=== PATIENT | female | born 1960 | race Caucasian/White ===

== ENCOUNTER 2017-05-03 12:12 | Observation (INO) | payer OTHER ==
[~2017-05-03] VITALS: Ht 177.8 cm; Wt 100.3 kg
[2017-05-03] VITALS (8 sets, daily range): BP systolic 143–161; BP diastolic 68–92; PULSE 59–79; RESP 15–18; O2SAT 97–99
[~2017-05-03 12:12] MED LIST: CITA20TA PO; OMPR20CCR PO
--- NOTE | 2017-05-03 12:17 | ED.REPORT ---
HPI-Stroke / CVA May 03, 2017 ED Provider: The patient is a 56 year old female who was brought to the emergency department by her son for stroke like symptoms. About 30 minutes prior to arrival the patient suddenly felt nauseous and was unable to speak. She knew what she wanted to say but was unable to get her mouth to move to speak. She was able to speak after a few minutes. The patient was with her friend when her symptoms began and she called her son to take her to the hospital. When he got to her she was speaking in short, 1-2 word sentences. Her words were intelligible but she normally speaks in longer sentences. She also noticed left-sided facial/ tongue numbness and a headache. Her son last saw the patient at 1100 AM today and she was normal then. The patient believes her symptoms began at 1145. She denies focal weakness, extremity numbness, slurred speech or trouble walking. Nursing Notes Stated Complaint: STATES POSSIBLE STROKE Chief Complaint: Neuro Symptoms/ Deficits Nursing Notes Reviewed: Yes Allergies: Coded Allergies: Opioids - Morphine Analogues (Verified Adverse Reaction, Intermediate, INTOLERANCE, 05/03/17) Scheduled Citalopram-Expunged Drug, Do Not Renew! (Citalopram-Expunged Drug, Do Not Renew! ) 20 Mg Tablet 20 MG PO DAILY (Reported) Omeprazole-Expunged Drug, Do Not Renew! (Omeprazole-Expunged Drug, Do Not Renew! ) 20 Mg Capsule.dr 20 MG PO DAILY (Reported) General Time Seen by Provider: 12:17 Chief Complaint Numbness, Unable to speak Face left Hx Obtained From: Patient, Son Arrived By: Walk-in Time last known well She believes her symptoms began at 1145. Seen by her son at 1100 and was completely normal. Sudden in Onset?: Yes Symptom Duration: 16 - 30 minutes Progression Since Onset: Constant Location: : Head Quality: Painful Severity: Current: Moderate Severity: Maximum: Moderate Associated with: Reports: Headache, Nausea, Speech problem (speaking in short sentences) Pertinent Negative: Pt denies other symptoms Pertinent Negative: Exacerbated by nothing, Relieved by nothing Recent Healthcare: No recent doctor visit, No recent hospitalization Similar Sx Previous: No Risk Factors NIH Stroke Scale Level of Consciousness: Alert and responsive (0) Ask Month & Age: Both questions right (0) Open/Close Eyes/Hand Court Assistant: Performs both tasks (0) Horizontal EO Movements: None (0) Visual Kay: No visual loss (0) Facial Palsy: Normal symmetry (0) Right Arm Motor Drift (10s): No drift 10 sec (0) Left Arm Motor Drift (10s): No drift 10 sec (0) Right Leg Motor Drift (5s): No drift 5 sec (0) Left Leg Motor Drift (5s): No drift 5 sec (0) Limb Ataxia FNF/Heel-Huber: No ataxia (0) Sensation (Arms/Legs/Face): Pinprick less sharp (1) (left upper extremity) Language Aphasia: No aphasia, normal (0) Dysarthria: No dysarthria, normal (0) Extinction/Inattention: No exctinct/inattent (0) NIHSS Score: 1 Time NIHSS Performed: 12:27 Date NIHSS Performed: May 03, 2017 Past Medical History Past Medical History Notes: Digital Media Manager: Dr. Handy Past Medical History Hypertension Basal cell carcinoma Past Surgical History Shoulder surgery Family History Noncontributory Smoking History Never Smoker Social History She lives with her mother who she takes care of. Other Social History: Good social support, Local resident Ambulatory Status Independent Review of Systems Review of Systems Note: +speaking in short sentences GI: Reports: Nausea Neurologic: Reports: Headache, Numbness (left face and tongue), Unable to speak , Denies: Focal weakness, Problem walking, Slurred speech, Weakness Complete sys rev & neg: except as marked. Physical Exam Initial Vital Signs Vital Signs (First) Date Time Temp Pulse Resp B/P Pulse Ox O2 Delivery O2 Flow Rate FiO2 05/03/17 12:14 36.8 68 15 160/92 97 Room Air Initial VS: Reviewed ENT: Mucous membranes moist, Conjunctiva normal, No scleral icterus Abdomen / GI: Soft, Non-tender, No guarding, No rebound, No distention Extremities: Vascular intact, Neuro intact, No swelling, No tenderness Skin: Warm, Dry, No cyanosis Psychiatric: Mood/affect normal, Behavior normal, Normal thought content General/Constitutional: Awake, Alert Head / Eyes: Atraumatic, Normocephalic, PERRL, EOMI Neck: Supple, Full range of motion, No swelling, Non-tender, No carotid bruit Respiratory / Chest: Atraumatic, Breath sounds NL, Breath sounds = bilat, No respiratory distress, No rales, No rhonchi, No wheezing Cardiovascular: Heart rate NL, Regular rhythm, Heart sounds NL, No gallop, No murmurs, No rubs, Peripheral circulation NL Neurologic: Oriented X3, Speech NL, No motor deficits, CN II - XII intact, Reflexes equal bilat, Cerebellar NL, Memory NL, Gait NL Sensory Deficit: Positive: Upper extremity L Cerebellar Dysfunction: Negative: Finger-nose abnl, Heel-huber abnl NIH stroke score: 1 due to decreased sensation on the left upper extremity. (see above in the risk section for details) Interpretation & Diagnostics Lab Results Interpretation Result Diagram: 05/03/17 1300 05/03/17 1300 Test 05/03/17 13:00 05/03/17 13:31 White Blood Count 6.3th/mm3 (3.8-10.1) Red Blood Count 4.64mil/mm3 (3.90-5.20) Hemoglobin 14.0g/dL (12.0-15.6) Hematocrit 42.1% (35.0-46.0) Mean Corpuscular Volume 90.7fL (81-100) Mean Corpuscular Hemoglobin 30.2pg (27.0-35.0) Mean Corpuscular Hemoglobin Concent 33.3% (32.0-37.0) Red Cell Distribution Width 12.8% (12.3-15.4) Platelet Count 252bil/L (150-400) Neutrophils (%) (Auto) 57.2% (40-74) Lymphocytes (%) (Auto) 30.2% (14-46) Monocytes (%) (Auto) 7.6% (4-12) Eosinophils (%) (Auto) 3.5% (0-5) Basophils (%) (Auto) 1.3% (0-3) Prothrombin Time 9.4sec (8.1-12.5) Prothromb Time International Ratio 0.88ratio Sodium Level 140mEq/L (134-144) Potassium Level 4.5mEq/L (3.5-5.2) Chloride Level 104mEq/L (97-108) Carbon Dioxide Level 21mmol/L (18-29) Blood Urea Nitrogen 12mg/dL (6-24) Creatinine 0.81mg/dL (0.57-1.00) Estimat Glomerular Filtration Rate 104mL/min (>59) Glucose Level 99mg/dL (60-99) Calcium Level 9.3mg/dL (8.5-10.1) Total Bilirubin 0.4mg/dL (0.0-1.2) Aspartate Amino Transf (AST/SGOT) 18U/L (0-50) Alanine Aminotransferase (ALT/SGPT) 18U/L (0-32) Alkaline Phosphatase 105U/L (25-150) Troponin T < 0.010ug/L (0.0-0.011) Total Protein 7.1g/dL (6.4-8.4) Albumin 4.0g/dL (3.4-5.0) ECG Interpretation ECG Interpretation: Normal sinus rhythm with a rate of 65 Time: 13:20 Interpreted by: ED physician Rhythm Strip Interpretation : Rhythm Strip Interpretation: NSR Rate: 70 Time: 12:39 Rhythm Strip Interpretation: Interpreted by me CT Head Interpretation IMPRESSION: Normal head CT. This study fulfills neurological imaging criteria for inclusion or exclusion of acute stroke therapies based on available published neurological imaging guidelines. Dictated by: Anjana Koo M.D. on 05/03/2017 at 12:27 Study: Head CT no contrast Interpretation / Wet Read by: Interpret - Radiologist Re-Eval/Medical Decision Med Decision/Clinical Course I am not entirely convinced that this woman's symptoms are consistent with stroke however I believe conservative management is appropriate given the fact that she has a history of expressive aphasia and left-sided mouth numbness and objective left upper extremity decreased sensation to pinprick. Source of Hx: Old records, Family Re-Evaluation/Progress : Time of Eval: 13:00 Re-Evaluation/Progress Note: Discussed plan for admission. All questions were addressed. Consultation : Referral / Consult Name: Prashant Pham Consulted With: Hospitalist Call Returned at: 13:18 Market Relationship Manager: Will see patient, Agrees with eval, Agrees with plan, Accepts admit Counseled Regarding: Diagnosis, Lab results, Need for admission Patient Discharge & Departure Impression: Primary Impression: Stroke CVA mechanism: unspecified Qualified Code: I63.9 - Cerebral infarction, unspecified Disposition: ADMITTED TO HOSPITAL Discharge Condition All VS Reviewed: Yes Condition: Stable Referrals: Windy Herrera PA-C (PCP) Scribe Attestation Portions of this note were transcribed by Flakita Eaton. I, Dr. Smith personally performed the history, physical exam and medical decision-making; I reviewed and confirmed the accuracy of the information in the transcribed note. Signed by: Ramos Patricia, 05/03/2017 at 1400. copies to: Windy Herrera PA-C, Kirk H MD May 03, 2017 12:17 Flakita Eaton May 03, 2017 12:24
--- NOTE | 2017-05-03 12:31 | DRSVH ---
PROCEDURE: CT BRAIN (TPA) ([id number]) INDICATIONS: Stroke TECHNIQUE: Noncontrast 4.5 mm thick angled axial sections acquired from the foramen magnum to the vertex, with c oronal reformats. COMPARISON: None. FINDINGS: Image quality: Excellent. CSF spaces: Basal cisterns are patent. No extra-axial fluid collections. Ventricles are normal in size and shape. Brain: No midline shift. No intracranial masses or hemorrhage. Villafana-white matter interface is norm al. Skull and face: Calvarium and visualized facial bones are intact, without suspicious lesions. Sinuses: Visualized sinuses and mastoids are clear. IMPRESSION: Normal head CT. This study fulfills neurological imaging criteria for inclusion or exclusion of acute stroke therapie s based on available published neurological imaging guidelines. Dictated by: Anjana Koo M.D. on 05/03/2017 at 12:27 Approved by: Anjana Koo M.D. on 05/03/2017 at 12:29
[2017-05-03 13:05] LABS: BASOPHILS % (AUTO) 1.3 % (0-3); EOSINOPHILS % (AUTO) 3.5 % (0-5); MONOCYTES % (AUTO) 7.6 % (4-12); Mean Corpuscular Hemoglobin 30.2 pg (27.0-35.0); Mean Corpuscular Volume 90.7 fL (81-100); NEUTROPHILS % (AUTO) 57.2 % (40-74); Platelet Count 252 bil/L (150-400)
[2017-05-03] MEDS ORDERED: Ondansetron 2 mg/mL 2 mL Inj IVPUSH PRN ×2 (13:25→16:30)
[2017-05-03] MEDS ORDERED: Alum-Mag Hydrox-Simeth 30 mL Suspension PO PRN ×2 (13:25→16:30)
[2017-05-03 13:32] LABS: INR 0.88 ratio
--- NOTE | 2017-05-03 13:32 | NUR ---
Evaluation completed. Please go to "Notes" then click on "Assessments and Notes" (bottom left corner of screen). Then select appropriate discipline tab on top of screen.
[2017-05-03 13:40] LABS: TROPONIN T < 0.010 ug/L (0.0-0.011)
[2017-05-03 14:11] LABS: APPEARANCE,URINE CLEAR (CLEAR,HAZY); COLOR,URINE YELLOW (YELLOW); OCCULT BLOOD,URINE NEGATIVE (NEGATIVE); PH,URINE 5.5 (5.0-8.0); UROBILINOGEN,URINE NORMAL (NORMAL)
[2017-05-03] MEDS ORDERED: SUCR1TAB (14:54)
[2017-05-03] MEDS ORDERED: PANT40TA3 PO (14:57)
[2017-05-03] MEDS ORDERED: LOSA100T29 PO (14:57)
[2017-05-03] MEDS ORDERED: RANI150C4 PO (14:57)
[2017-05-03] MEDS ORDERED: FEXO-106 PO (14:57)
[2017-05-03] MEDS ORDERED: CITA20TA11 PO (14:59)
--- NOTE | 2017-05-03 15:03 | NUR ---
Admit to [facility] Patient report called by Yanira Mendiola RN in ED. Patient arrived to [facility] via gurney and was able to transfer independently to bed. Patient has steady gait observed. Patient has equal strengths to all extremities. Patient states she has very minimal tingling to the left side of her jaw,cheek, and near eye. Patient oriented to room, call light, staff, visiting hours, television, and ordering meals. Patient did have complaints of 7/10 headache pain and was administered 975mg Tylenol. Bed locked and call light within reach.
[2017-05-03] MEDS ORDERED: Labetalol 5 mg/mL 4 mL Inj IVPUSH PRN (16:30)
[2017-05-03] MEDS ORDERED: Polyethylene Glycol (PEG) 17 Gm Powder PO PRN (16:30)
[2017-05-03] MEDS: Heparin 5,000 Unit/mL Inj SUBQ SCH (17:05)
--- NOTE | 2017-05-03 17:54 | PCM.HPMED ---
Subjective Date of Service May 03, 2017 Primary Provider: Admitting Physician: Prashant Pham Primary Care Physician: Windy Herrera PA-C Attending Physician: Prashant Pham Chief Complaint: transient left facial numbness and difficulty with speech History of Present Illness: 56 year old female generally healthy other than history of hypertension, obesity , and depression was in her usual state of health as she was driving with her boyfriend when suddenly felt she was having a hard time speaking. She says she could think of the words but was having a hard time uttering them. She kept thinking "I need to answer my boyfriends but the words weren't coming out". She was able to tell her boyfriend that she wasn't feeling well. She then started feeling numbness and tingling of the left side of her face. She finally told her boyfriend to bring her to the ED. By the time she arrived to the ED (which was about 30 minutes from the onset of her symptoms) her speech difficulty had completely resolved and the numbness and tingling of her face was also resolving and by the time she arrived to the floor her symptoms have completely resolved (about 2-3 hours after onset). She reports associated mild frontal headache but otherwise denies any other associated signs or symptoms. She denies any change in her medications recently and denies any prior such events. Review of Systems: Constitutional: Negative, except as otherwise mentioned in the history above. Ophthalmologic: Negative, except as otherwise mentioned in the history above. Cardiovascular: Negative, except as otherwise mentioned in the history above. Respiratory: Negative, except as otherwise mentioned in the history above. Gastrointestinal: Negative, except as otherwise mentioned in the history above. Genitourinary: Negative, except as otherwise mentioned in the history above. Musculoskeletal: Negative, except as otherwise mentioned in the history above. Neurological: Negative, except as otherwise mentioned in the history above. Psychiatric: Negative, except as otherwise mentioned in the history above. Hematologic/Lymphatic: Negative, except as otherwise mentioned in the history above. Allergic/Immunologic: Negative, except as otherwise mentioned in the history above. Allergies Coded Allergies: Opioids - Morphine Analogues (Verified Adverse Reaction, Intermediate, INTOLERANCE, 05/03/17) Home Medications Fexofenadine 180 Mg Tablet 180 Mg PO DAILY Losartan Potassium 100 Mg Tablet 100 Mg PO Citalopram 20 Mg Tablet 20 Mg PO DAILY Ref [address] 40 Mg Tablet.Dr 40 Mg PO BID Ref 0 Ranitidine 150 Mg Capsule 150 Mg PO BID Ref 0 Sucralfate 1 Gm Tablet Exam Vital Signs & I/O Vital Sign- Last 8 Hours Date Time Temp Pulse Resp B/P Pulse Ox O2 Delivery O2 Flow Rate FiO2 05/03/17 14:42 69 05/03/17 14:21 36.8 74 18 161/82 99 Room Air 05/03/17 14:12 36.4 79 17 144/71 97 Room Air 05/03/17 13:45 36.4 79 17 144/71 97 Room Air 05/03/17 12:43 148/68 05/03/17 12:36 74 18 98 Room Air 05/03/17 12:14 36.8 68 15 160/92 97 Room Air Lab & Micro Results Laboratory Tests Test 05/03/17 13:00 05/03/17 13:31 White Blood Count 6.3th/mm3 (3.8-10.1) Red Blood Count 4.64mil/mm3 (3.90-5.20) Hemoglobin 14.0g/dL (12.0-15.6) Hematocrit 42.1% (35.0-46.0) Mean Corpuscular Volume 90.7fL (81-100) Mean Corpuscular Hemoglobin 30.2pg (27.0-35.0) Mean Corpuscular Hemoglobin Concent 33.3% (32.0-37.0) Red Cell Distribution Width 12.8% (12.3-15.4) Platelet Count 252bil/L (150-400) Neutrophils (%) (Auto) 57.2% (40-74) Lymphocytes (%) (Auto) 30.2% (14-46) Monocytes (%) (Auto) 7.6% (4-12) Eosinophils (%) (Auto) 3.5% (0-5) Basophils (%) (Auto) 1.3% (0-3) Prothrombin Time 9.4sec (8.1-12.5) Prothromb Time International Ratio 0.88ratio Sodium Level 140mEq/L (134-144) Potassium Level 4.5mEq/L (3.5-5.2) Chloride Level 104mEq/L (97-108) Carbon Dioxide Level 21mmol/L (18-29) Blood Urea Nitrogen 12mg/dL (6-24) Creatinine 0.81mg/dL (0.57-1.00) Estimat Glomerular Filtration Rate 104mL/min (>59) Glucose Level 99mg/dL (60-99) Calcium Level 9.3mg/dL (8.5-10.1) Total Bilirubin 0.4mg/dL (0.0-1.2) Aspartate Amino Transf (AST/SGOT) 18U/L (0-50) Alanine Aminotransferase (ALT/SGPT) 18U/L (0-32) Alkaline Phosphatase 105U/L (25-150) Troponin T < 0.010ug/L (0.0-0.011) Total Protein 7.1g/dL (6.4-8.4) Albumin 4.0g/dL (3.4-5.0) Hold [place] Top Tube Received (Received) Urine Color Yellow (YELLOW) Urine Appearance Clear (CLEAR,HAZY) Urine pH 5.5 (5.0-8.0) Urine Specific [place] 1.005 (1.003-1.035) Urine Protein Negativemg/dL (NEG,TRACE) Urine Glucose (UA) Negativemg/dL (NEGATIVE) Urine Ketones Negativemg/dL (NEGATIVE) Urine Occult Blood Negative (NEGATIVE) Urine Nitrite Negative (NEGATIVE) Urine Bilirubin Negative (NEGATIVE) Urine Urobilinogen Normalmg/dL (NORMAL) Urine Leukocyte Esterase Negative (NEGATIVE) Urine RBC 0-2/hpf (0-2) Urine WBC 0-5/hpf (0-5) Urine Epithelial Cells Few/hpf (NONE-MOD) Urine Crystals None seen (NONE SEEN) Urine Bacteria Few/hpf (NONE-FEW) Urine Hyaline Casts None/lpf (NONE) Urine Granular Casts None seen (NONE SEEN) Urine Waxy Casts None seen (NONE SEEN) Urine Red Blood Cell Casts None seen (NONE SEEN) Urine White Blood Cell Casts None seen (NONE SEEN) Urine Mucus None seen (None Seen) Urine Trichomonas None seen (NONE SEEN) Urine Yeast None (NONE SEEN) Urinalysis Comment None Urine Culture Reflexed Not indicated Result Diagram: 05/03/17 1300 05/03/17 1300 PMH 1. Hypertension 2. GERD 3. Depression 4. Obesity 5. Reports a prior history of irregular heart rhythm but says was told that she does not need to be on any medication. She is not sure about the name of the condition. Family History Denies any family history of heart disease. Notable for mother and sister with diabetes Social History Hx Alcohol Use: No Hx Substance Use: No Hx Tobacco Use: No Smoking Status: Never Smoker Exam Vital Signs Vital Sign - Last Date Time Temp Pulse Resp B/P Pulse Ox O2 Delivery O2 Flow Rate FiO2 05/03/17 14:42 69 05/03/17 14:21 36.8 18 161/82 99 Room Air General: Alert, Oriented X3, Cooperative, No Acute Distress Head: Normal Eyes: PERRLA, EOMI, Scleral Anicteric Nose: Mucous Membr Moist/[place] Mouth: Mucous Membr Moist/[place] Neck: Supple Chest & Lungs: Chest Wall Normal, Clear to auscultation & percussion Cardiovascular: Regular Rate/Rhythm Pulses: NL carotid, radial, femoral, DP, PT Abdomen: Non-tender, Non-distended, Normoactive bowel tones, Soft Extremities: No cyanosis/clubbing/edma bilat Skin: Other (no ulcer/rash) Neurological: Grossly Neurologically Intact, Cranial Nerves 2-12 Intact, Normal Speech, Strength Normal 4/4 ext, Sensation Intact Additional Information: Affect: calm, appropriate Lab and Diagnostics Result Diagram: 05/03/17 1300 05/03/17 1300 X-Rays, CTs and MRIs Date of Service: 05/03/17 1217 PROCEDURE: CT BRAIN (TPA) ([id number]) IMPRESSION: Normal head CT. This study fulfills neurological imaging criteria for inclusion or exclusion of acute stroke therapies based on available published neurological imaging guidelines. Dictated by: Anjana Koo M.D. on 05/03/2017 at 12:27 Approved by: Anjana Koo M.D. on 05/03/2017 at 12:29 12-lead ECG NSR at about 65 bmp. no old EKG for comparison Assessment & Plan 56 year old female generally healthy other than history of hypertension, obesity presenting with transient episode of difficulty with her speech and left facial numbness. # Acute and transient neurologic symptoms possibly due to acute transient ischemic attack (TIA), present on admission. Resolved - Tele - MRI brain - Echo - Carotid U/S - ASA + Statin - Fasting lipid panel - Permissive HTN - PT/OT/Speech eval # History of hypertension - Permissive hypertension for now as noted above - Prn IV Labetalol # History of depression. Stable - Continue home Celexa # Reported history of irregular heart rhythm. - EKG on admission was normal sinus - Followup on Tele # GERD. Stable - Continue with PPI Expected length of hospital stay is less than 2 midnights and likely home tomorrow GI Prophylaxis: Proton Pump Inhibitor VTE Prophylaxis: Sub-Q Heparin (Unfractionated) Resuscitation Status: CPR: Attempt Resuscitation (discussed and verified with patient) Time spent 60 min Prashant Pham May 03, 2017 17:54
--- NOTE | 2017-05-03 19:30 | DRSVH ---
PROCEDURE: MRI STROKE PROTOCOL ([id number]) Pre- and post-contrast brain MRI, non-contrast brain MR angiogram, pre- and postcontrast neck MR [place] ogram INDICATIONS: Left facial numbness TECHNIQUE: Brain: Noncontrast axial T1 spin echo, axial T2 fast spin echo, sagittal and axial FLAIR, coronal T2 fast spin echo, axial gradient echo, axial diffusion and ADC through the brain. After the administr ation of contrast, axial 3D VIBE of the cranial vasculature and brain. Brain MRA: Non-contrast 3-D time of flight MR angiogram, with multiple pgsykim-jiqdjkwgn-xosouxxesj (MIP) reformats performed. Neck MRA: Axial and sagittal TruFISP through the neck. Coronal dynamic MR angiogram during administ ration of contrast in the arterial and venous phases, with 3-dimenstional lrkqayl-nuovzzaum-igttgrpee n (MIP) reformats constructed from subtraction images. COMPARISON: None. FINDINGS: Image quality: Excellent. BRAIN: CSF spaces: Ventricles are normal in size and shape. Basal cisterns are patent. No extra-axial flu id collections. Brain: No intracranial bleeds or mass effects. Mildly prominent right periventricular parietal lobe white matter signal change. However no associated enhancement Villafana-white matter interface is normal. Diffusion weighted images show no acute ischemic insults. Br ainstem appears normal. Normal intravascular flow voids are present. No abnormal intracranial enhan cement. Skull and face: Calvarial marrow signal is normal. Orbits appear normal. Sinuses: Sinuses and mastoids are clear. BRAIN MR ANGIOGRAM: Anterior circulation: Intracranial internal carotid arteries are normal in size and enhancement. 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 The flow within the corbin red anterior cerebral arteries is normal and symmetric. The flow within the middle cerebral arteries is normal and symmetric. The anterior communicating artery is seen. No stenoses, occlusions, or an eurysms. Posterior circulation: The visualized portions of the vertebral arteries demonstrate normal caliber, and join to form a normal appearing basilar artery. origin of the left posterior cerebral chary ry. The flow within the posterior cerebral arteries is normal and symmetric. No stenoses, occlusion s, or aneurysms. NECK MR ANGIOGRAM: Carotids: Great vessels demonstrate a conventional anatomy as they arise from the aortic arch. The origins of the common carotid arteries appear patent. The calibers and courses of both common caroti d arteries are normal. The bifurcation regions appear normal bilaterally. The internal carotid chary melania demonstrate normal course and caliber. Posterior circulation: The origins of the vertebral arteries appear patent. More superior portions of both vertebral arteries demonstrate normal course and caliber, and join to form a normal appearing basilar artery. Miscellaneous: Subclavian arteries appear patent. Pre-contrast images through the neck show no soft tissue abnormalities. IMPRESSION: BRAIN MRI: No evidence of acute ischemia. Nonspecific right parietal lobe periventricular white matter signal change raising the possibility of early demyelinating lesion, however no associated abnormal enhancement. 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 Otherwise, no focal stenosis or occlusion NECK MR ANGIOGRAM: Negative exam The estimate of stenosis included in the report of the imaging study was calculated using the NASCET method Dictated by: Daron Bazan M.D. on 05/03/2017 at 19:18 Approved by: Daron Bazan M.D. on 05/03/2017 at 19:28
[2017-05-03] MEDS ORDERED: SUCR1TAB PO (19:37)
--- NOTE | 2017-05-03 19:56 | DRSVH ---
PROCEDURE: US BILATERAL DUPLEX DOPPLER IMAGING OF THE CAROTIDS ([id number]) INDICATIONS: R/O Carotid Disease if no MRA or CTA Neck TECHNIQUE: Color and pulse Doppler interrogation was performed of both carotid systems, with image documentation and velocity measurements. COMPARISON: None. FINDINGS: All stenosis calculations are based on NASCET criteria. Right side: Brachial blood pressure: 161/82 mm Hg. Common Carotid Artery(Distal) PSV: 84.70 cm/s Internal Carotid Artery PSV- Proximal: 70.10 cm/s Mid-lon.50 cm/s Distal: 96.50 cm/s EDV - Proximal: 26.90 cm/s Mid-lon.70 cm/s Distal: 34.20 cm/s External Carotid Artery(Proximal) PSV: 83.60 cm/s ICA/CCA PSV ratio: 1.14 Villafana scale imaging description: No plaque Percent internal carotid artery stenosis: None. Vertebral artery: Flow direction is antegrade. Left side: Brachial blood pressure: Not obtained secondary to IV site Common Carotid Artery(Distal) PSV: 83 cm/s Internal Carotid Artery PSV - Proximal: 64.50 cm/s Mid-lon.90 cm/s Distal: 92.50 cm/s EDV - Proximal: 24.10 cm/s Mid-lon cm/s Distal: 33.70 cm/s External Carotid Artery(Proximal) PSV: 81.30 cm/s ICA/CCA PSV ratio: 1.11 Villafana scale imaging description: No plaque Percent internal carotid artery stenosis: None. Vertebral artery: Flow direction is antegrade. IMPRESSION: No ICA stenosis. Dictated by: Daron Bazan M.D. on 05/03/2017 at 19:53 Approved by: Daron Bazan M.D. on 05/03/2017 at 19:54
[2017-05-03] MEDS: Pantoprazole 40 mg ER24 Tablet PO SCH (22:10)
[2017-05-04 00:46] VITALS: BP 135/75; PULSE 69; RESP 18; O2SAT 97
[2017-05-04] MEDS: Heparin 5,000 Unit/mL Inj SUBQ SCH ×2 (00:46→08:19)
[2017-05-04 05:37] VITALS: BP 123/77; PULSE 64; RESP 16; O2SAT 97
[2017-05-04 06:11] LABS: Magnesium 2.2 mg/dL (1.6-2.6)
--- NOTE | 2017-05-04 06:15 | NUR ---
neuros Pt reported left side of face "still feeling unusual" in the beginning of shift. Denies numbness or tingling. Symptom is completely resolved around midnight. Denies pain or discomfort. independent in the room; gait steady. VSS.
[2017-05-04] MEDS: Pantoprazole 40 mg ER24 Tablet PO SCH (08:18)
[2017-05-04 09:43] VITALS: BP 147/81; PULSE 58; RESP 18; O2SAT 96
[2017-05-04 10:15] VITALS: PULSE 54
--- NOTE | 2017-05-04 11:38 | NUR ---
Social Work-screening: Data:EMR Reviewed. Pt is a 56 y/o female who was admitted on 05/03/17 for CVA per H&P. Pt's insurance is [employer] and PCP is HARVINDER Edouard. EMR Reviewed. Pt's readmission score is 2. SW met with pt to discuss discharge planning, SW role explained. Pt is alert and oriented x3. Pt reside at home with her mom in [place] where she remains independent with ADLS. Pt has no completed DPOA/ advanced directive paperwork and pt is not interested in any information at this time. PT and ST are both pending. SW provided pt with discharge planning checklist booklet and encouraged pt to call with any questions. SW provided phone number and plan on white board in room. Pt's son to provide transport home. No anticipated discharge needs. SW will continue to follow if needs arise. Assessment:Pt who is independent at baseline. Plan:Pt to discharge home when medically stable via POV.No anticipated discharge needs. SW will continue to follow if needs arise. LILLIAN Jones
--- NOTE | 2017-05-04 11:45 | NUR ---
Ambulation Pt ambulated to hallway, stable, steady gait observed. Pt is independent in the room to bathroom. No neuro deficits noted. Encouraged to contact staff for needs. Call light in place, will continue to monitor,.
[2017-05-04 13:32] VITALS: BP 150/81; PULSE 64; RESP 20; O2SAT 96
--- NOTE | 2017-05-04 15:15 | DRSVH ---
[facility] [address] [place] [address] Echocardiogram Report Name: MELY AGRAWAL KStudy Date: 05/04/2017 Height: 70 in Hospital Exam Location: [facility] Weight: 221 lb Gender: Female BSA: 2.2 m2 : 1960 Age: 56 yrs BP: 123/77 mmHg Reason For Study: CVA Ordering Physician: EMERY GONZALEZ Performed By: Denton Jalloh Referring Physician: CORTEZ Herrera Interpretation Summary Left ventricular size is at the upper limits of normal and left ventricular systolic function is normal without focal wall motion abnormalities with the ejection fraction visually estimated to be 55-60%. Assessment of diastolic parameters indicates normal left ventricular diastolic function and normal filling pressures. The right ventricle is normal size and right ventricular systolic function is at the lower limits of normal. The right ventricular systolic pressure is estimated at 23 mmHg assuming a right atrial pressure of 3 mm Hg. Both atria are normal in size and the interatrial septum appears intact with no evidence for an atrial septal defect by Doppler or injection of contrast. There is no significant valvular heart disease. The aortic arch and ascending aorta are at the upper limits of normal in size. Procedure: A two-dimensional transthoracic echocardiogram with color flow and Doppler was performed. The study quality was technically adequate. There is no prior echocardiogram noted for this patient. A saline contrast injection was performed to assess for cardiac shunting. The patient was in normal sinus rhythm during the exam. Left Ventricle: Left ventricular size is at the upper limits of normal. There is normal left ventricular wall thickness. Left ventricular systolic function is normal without focal wall motion abnormalities. The ejection fraction is estimated to be 55-60%. Assessment of diastolic parameters indicates normal left ventricular diastolic function and normal filling pressures. Right Ventricle: The right ventricle is normal size. Right ventricular systolic function is at the lower limits of normal. Atria: Both atria are normal in size. The interatrial septum is intact with no evidence for an atrial septal defect. There is no Doppler evidence for an interatrial shunt. Injection of contrast documented no interatrial shunt. Mitral Valve: The mitral valve leaflets appear mildly thickened, but open well. There is trace mitral regurgitation. Aortic Valve: The aortic valve is trileaflet. The aortic valve is slightly calcified. The aortic valve opens well. No aortic regurgitation is present. Tricuspid Valve: The tricuspid valve is normal in structure and function. There is trace tricuspid regurgitation. The right ventricular systolic pressure is estimated at 23 mmHg assuming a right atrial pressure of 3 mm Hg. Pulmonic Valve: The pulmonic valve is not well visualized. There is no significant valvular heart disease. Great Vessels: The aortic root is normal size. The aortic arch is at the upper limits of normal in size. The ascending aorta is at the upper limits of normal in size. The pulmonary artery is normal size. The IVC is of normal diameter and collapses greater than 50% with a sniff. This suggests a low right atrial pressure of 3 mm Hg. Pericardium/ Pleura There is no pericardial effusion. There is no pleural effusion. MMode/2D Measurements & Calculations LVIDd: 5.5 cm LA dimension: 3.3 cm RA long axis Ao root diam LVIDs: 3.3 cm FS: 39.5 % LA A2 area: 18.4 cm RA area Aortic Jxn: 2.8 cm EPSS: 0.65 cm LA A4 area: 26.5 cm asc Aorta Diam IVSd: 0.86 cm LA length (vol) : 17.6 cm LVPWd: 1.0 cm RA vol Ao Arch Diam (Prox LA vol: 64.3 ml : 53.4 ml Trans): 3.1 cm LA vol index RA : 24.5 mm2 IVC diam: 1.7 cm LV wells. diameter/BSA LV sys. diameter/BSA (cm/m^2): 2.5 (cm/m^2): 1.5 Doppler Measurements & Calculations Ao V2 max MV E max ector MV E/A: 1.3 TR max ector : 138.7 cm/sec : 86.1 cm/sec Med Peak E' Ector : 224.8 cm/sec Ao max PG MV A max ector TR max P.2 mmHg : 7.7 mmHg : 67.6 cm/sec E/E' med: 9.5 PA V2 max: 71.7 cm/sec Ao mean PG Pulm A Revs Dur PA mean P.3 mmHg : 4.6 mmHg PA Accel Time: 0.14 sec MV A dur: 0.12 sec MV dec time Ao V2 mean PA V2 mean Pulm A Revs Dur - MV A : 0.20 sec : 102.2 cm/sec : 55.6 cm/sec Dur: -0.02 msec Ao V2 VTI PA pr(Accel) : 33.1 cm : 13.9 mmHg Reading Physician:03:15 PM
[2017-05-04] MEDS ORDERED: ATOR10TA66 PO (15:44)
[2017-05-04] MEDS ORDERED: ASPI-973 PO (15:44)
--- NOTE | 2017-05-04 15:47 | PCM.DIMED ---
Discharge Instructions Date of Service May 04, 2017 Dates of Hospitalization May 03, 2017 at 13:32 Discharge Diagnosis Discharge Diagnosis # Acute and transient neurologic symptoms possibly due to acute transient ischemic attack (TIA), present on admission. Resolved # MRI brain showing: "Nonspecific right parietal lobe periventricular white matter signal change raising the possibility of early demyelinating lesion, however no associated abnormal enhancement." - Recommend further followup with primary care provider to ensure stability. # History of hypertension # History of depression. Stable # GERD. Stable Diet Discharge Diet: Low fat, Low Sodium, Heart Healthy Activity Discharge Activity: No restrictions Call your provider Call your provider for: Fever or Chills, Shortness of breath, Bleeding, Chest pain, Weakness (unilateral) Patient Instructions Patient Instructions Seek immediate medical attention if any new or worsening signs or symptoms occur. Follow-up plan 1. Followup with your primary care provider in 3-7 days Follow-up Provider: Windy Herrera PA-C, [place] May 04, 2017 15:47
--- NOTE | 2017-05-04 15:52 | PCM.DC.MED ---
Discharge Summary Date of Service May 04, 2017 Dates of Hospitalization Date of Hospital Admission May 03, 2017 at 13:32 Date of Discharge: May 04, 2017 Providers: Admitting Physician: Prashant Ceron Primary Care Physician: Winyd Herrera PA-C Attending Physician: Prashant Ceron Diagnosis at Time of Discharge Diagnosis at Time of Discharge # Acute and transient neurologic symptoms possibly due to acute transient ischemic attack (TIA), present on admission. Resolved # MRI brain showing: "Nonspecific right parietal lobe periventricular white matter signal change raising the possibility of early demyelinating lesion, however no associated abnormal enhancement." - Recommend further followup with primary care provider to ensure stability. # History of hypertension # History of depression. Stable # GERD. Stable Procedures XRay, CTs & MRIs Date of Service: 05/03/17 1217 PROCEDURE: CT BRAIN (TPA) ([id number]) IMPRESSION: Normal head CT. This study fulfills neurological imaging criteria for inclusion or exclusion of acute stroke therapies based on available published neurological imaging guidelines. Dictated by: Anjana Koo M.D. on 05/03/2017 at 12:27 Approved by: Anjana Koo M.D. on 05/03/2017 at 12:29 Date of Service: 05/03/17 1628 PROCEDURE: MRI STROKE PROTOCOL ([id number]) Pre- and post-contrast brain MRI, non-contrast brain MR angiogram, pre- and postcontrast neck MR angiogram IMPRESSION: BRAIN MRI: No evidence of acute ischemia. Nonspecific right parietal lobe periventricular white matter signal change raising the possibility of early demyelinating lesion, however no associated abnormal enhancement. 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 Otherwise, no focal stenosis or occlusion NECK MR ANGIOGRAM: Negative exam The estimate of stenosis included in the report of the imaging study was calculated using the NASCET method Dictated by: Daron Bazan M.D. on 05/03/2017 at 19:18 Approved by: Daron Bazan M.D. on 05/03/2017 at 19:28 ECG 12 Lead NSR at about 65 bmp. no old EKG for comparison Cardiac Echo Impression Date of Service: 05/04/17 0800 Echocardiogram Report Interpretation Summary Left ventricular size is at the upper limits of normal and left ventricular systolic function is normal without focal wall motion abnormalities with the ejection fraction visually estimated to be 55-60%. Assessment of diastolic parameters indicates normal left ventricular diastolic function and normal filling pressures. The right ventricle is normal size and right ventricular systolic function is at the lower limits of normal. The right ventricular systolic pressure is estimated at 23 mmHg assuming a right atrial pressure of 3 mm Hg. Both atria are normal in size and the interatrial septum appears intact with no evidence for an atrial septal defect by Doppler or injection of contrast. There is no significant valvular heart disease. The aortic arch and ascending aorta are at the upper limits of normal in size. Reading Physician:03:15 PM Other Diagnostics Date of Service: 05/03/17 1628 PROCEDURE: US BILATERAL DUPLEX DOPPLER IMAGING OF THE CAROTIDS ([id number]) IMPRESSION: No ICA stenosis. Dictated by: Daron Bazan M.D. on 05/03/2017 at 19:53 Approved by: Daron Bazan M.D. on 05/03/2017 at 19:54 Brief History 56 year old female generally healthy other than history of hypertension, obesity , and depression was in her usual state of health as she was driving with her boyfriend when suddenly felt she was having a hard time speaking. She says she could think of the words but was having a hard time uttering them. She kept thinking "I need to answer my boyfriends but the words weren't coming out". She was able to tell her boyfriend that she wasn't feeling well. She then started feeling numbness and tingling of the left side of her face. She finally told her boyfriend to bring her to the ED. By the time she arrived to the ED (which was about 30 minutes from the onset of her symptoms) her speech difficulty had completely resolved and the numbness and tingling of her face was also resolving and by the time she arrived to the floor her symptoms have completely resolved (about 2-3 hours after onset). She reports associated mild frontal headache but otherwise denies any other associated signs or symptoms. She denies any change in her medications recently and denies any prior such events. Hospital Course # Acute and transient neurologic symptoms possibly due to acute transient ischemic attack (TIA), present on admission. Resolved - MRI brain without acute stroke but with ? early demyelinating lesion. - Recommend further followup with PCP and possible neurology referral as outpatient to ensure stability - Echo and carotid U/S unremarkable as noted above - Will d/c home with low dose ASA and Statin until further followup with PCP # History of hypertension. stable # History of depression. Stable # Reported history of irregular heart rhythm. None noted during this hospital # GERD. Stable Exam Vital Signs (Last) Date Time Temp Pulse Resp B/P Pulse Ox O2 Delivery O2 Flow Rate FiO2 05/04/17 13:32 36.9 64 20 150/81 96 Room Air Exam General: Alert, Oriented X3, Cooperative, No Acute Distress Head: Normal Eyes: PERRLA, EOMI, Scleral Anicteric Nose: Mucous Membr Moist/Carver Mouth: Mucous Membr Moist/Carver Neck: Supple Chest & Lungs: Chest Wall Normal, Clear to auscultation bilat Cardiovascular: Regular Rate/Rhythm Abdomen: Non-tender, Non-distended, Normoactive bowel tones, Soft Neurological: Grossly Neurologically Intact, Cranial Nerves 2-12 Intact, Normal Speech, Strength Normal 4/4 ext, Sensation Intact Test 05/03/17 13:00 05/03/17 13:31 05/04/17 05:25 White Blood Count 6.3th/mm3 (3.8-10.1) Red Blood Count 4.64mil/mm3 (3.90-5.20) Hemoglobin 14.0g/dL (12.0-15.6) Hematocrit 42.1% (35.0-46.0) Mean Corpuscular Volume 90.7fL (81-100) Mean Corpuscular Hemoglobin 30.2pg (27.0-35.0) Mean Corpuscular Hemoglobin Concent 33.3% (32.0-37.0) Red Cell Distribution Width 12.8% (12.3-15.4) Platelet Count 252bil/L (150-400) Neutrophils (%) (Auto) 57.2% (40-74) Lymphocytes (%) (Auto) 30.2% (14-46) Monocytes (%) (Auto) 7.6% (4-12) Eosinophils (%) (Auto) 3.5% (0-5) Basophils (%) (Auto) 1.3% (0-3) Prothrombin Time 9.4sec (8.1-12.5) Prothromb Time International Ratio 0.88ratio Total Bilirubin 0.4mg/dL (0.0-1.2) Aspartate Amino Transf (AST/SGOT) 18U/L (0-50) Alanine Aminotransferase (ALT/SGPT) 18U/L (0-32) Alkaline Phosphatase 105U/L (25-150) Troponin T < 0.010ug/L (0.0-0.011) Total Protein 7.1g/dL (6.4-8.4) Albumin 4.0g/dL (3.4-5.0) Hold [place] Top Tube Received (Received) Urine Color Yellow (YELLOW) Urine Appearance Clear (CLEAR,HAZY) Urine pH 5.5 (5.0-8.0) Urine Specific [place] 1.005 (1.003-1.035) Urine Protein Negativemg/dL (NEG,TRACE) Urine Glucose (UA) Negativemg/dL (NEGATIVE) Urine Ketones Negativemg/dL (NEGATIVE) Urine Occult Blood Negative (NEGATIVE) Urine Nitrite Negative (NEGATIVE) Urine Bilirubin Negative (NEGATIVE) Urine Urobilinogen Normalmg/dL (NORMAL) Urine Leukocyte Esterase Negative (NEGATIVE) Urine RBC 0-2/hpf (0-2) Urine WBC 0-5/hpf (0-5) Urine Epithelial Cells Few/hpf (NONE-MOD) Urine Crystals None seen (NONE SEEN) Urine Bacteria Few/hpf (NONE-FEW) Urine Hyaline Casts None/lpf (NONE) Urine Granular Casts None seen (NONE SEEN) Urine Waxy Casts None seen (NONE SEEN) Urine Red Blood Cell Casts None seen (NONE SEEN) Urine White Blood Cell Casts None seen (NONE SEEN) Urine Mucus None seen (None Seen) Urine Trichomonas None seen (NONE SEEN) Urine Yeast None (NONE SEEN) Urinalysis Comment None Urine Culture Reflexed Not indicated Sodium Level 143mEq/L (134-144) Potassium Level 4.4mEq/L (3.5-5.2) Chloride Level 107mEq/L (97-108) Carbon Dioxide Level 24mmol/L (18-29) Blood Urea Nitrogen 14mg/dL (6-24) Creatinine 0.93mg/dL (0.57-1.00) Estimat Glomerular Filtration Rate 89mL/min (>59) Glucose Level 105mg/dL (60-99) Calcium Level 9.2mg/dL (8.5-10.1) Magnesium Level 2.2mg/dL (1.6-2.6) Triglycerides Level 148mg/dL (0-149) Cholesterol Level 157mg/dL (100-199) LDL Cholesterol, Calculated 79.400mg/dL (0-99) VLDL Cholesterol 29.600mg/dL HDL Cholesterol 48mg/dL (>39) Cholesterol/HDL Ratio 3.27 (0.0-4.4) Discharge Medications Discharge Medications Aspirin (Aspirin) 81 Mg Tablet 81 MG PO DAILY Prescribed by: PRASHANT CERON MD Atorvastatin Calcium (Atorvastatin Calcium) 10 Mg Tablet 10 MG PO HS Prescribed by: PRASHANT CERON MD Citalopram (Citalopram) 20 Mg Tablet 20 MG PO DAILY (Reported) Fexofenadine (Fexofenadine) 180 Mg Tablet 180 MG PO DAILY (Reported) Pantoprazole DR (Pantoprazole DR) 40 Mg Tablet.dr 40 MG PO BID (Reported) Ranitidine (Ranitidine) 150 Mg Capsule 150 MG PO BID (Reported) Sucralfate (Sucralfate) 1 Gm Tablet 1 GM PO TID (Reported) Miscellaneous Medications Losartan Potassium (Losartan Potassium) 100 Mg Tablet 100 MG PO (Reported) Followup Plan Disposition: Home Follow-up plan 1. Followup with your primary care provider in 3-7 days Discharge Diet: Low fat, Low Sodium, Heart Healthy Discharge Activity: No restrictions Patient Instructions Seek immediate medical attention if any new or worsening signs or symptoms occur. Follow-up Provider: Windy Herrera PA-C Time spent 35 min copies to: Windy Herrera PA-C, [place] May 04, 2017 15:52
--- NOTE | 2017-05-04 15:54 | NUR ---
Social Work-discharge: Data:EMR Reviewed. Pt is on day 1 of hospitalization for CVA per H&P. Pt is medically stable for discharge. Per RN notes, pt has been up independent in her room. Pt's family to provide transport home. No discharge needs identified. All updated and agreeable to plan. Assessment:pt who is independent at baseline. Plan:Pt to discharge home today via POV. No discharge needs identified. All updated and agreeable to plan. LILLIAN Jones
== END 2017-05-04 16:36 | disposition home or self-care (01) ==
LOC: SED 12:12 → MPC 13:32
PROVIDERS: ADMIT Internal Medicine; ATTEND Internal Medicine
DX: R20.0 Anesthesia of skin (principal); R47.01 Aphasia; I10 Essential (primary) hypertension; F32.9 Major depressive disorder, single episode, unspecified; K21.9 Gastro-esophageal reflux disease without esophagitis; E66.9 Obesity, unspecified
CPT/HCPCS: 36415; 70450; 70549; 70553; 80048; 80053; 80061; 81000; 81025; 82948; 83735; 84484; 85025; 85610; 86850; 92610; 93005; 93880; 99285; A9585; C8929; G0378; J1644